=== PATIENT | male | born 1955 | race Caucasian/White ===

== ENCOUNTER → 2016-08-09 | Outpatient (CLI) | payer OTHER ==
--- NOTE | 2016-08-29 09:10 | HKNOTE ---
DATE OF SERVICE: 08/09/2016 REFERRING PHYSICIAN: [place], [id number] [facility], [place] [address] MAIN COMPLAINT: Pain in both hips, worse on the right side. HISTORY OF PRESENT ILLNESS: This is a 60-year-old male who underwent lumbar spine surgery in [address] Jorge Plasencia at [facility]. His surgery was unsuccessful and the patient was not improved at all from the operation. The pain became progressively worse over the last 3 years and lately has become unbearable. He saw Dr. Ward in [place], who obtained x- rays of his pelvis and diagnosed osteonecrosis of both hips. He then referred the patient to me for further evaluation and treatment. CHIEF COMPLAINT: 1. Pain in the right groin, radiating down the anterior aspect of the right thigh to just above the knee. 2. Pain in the left groin, radiating down the anterior aspect of the leg to just above the knee. The pain is described as being severe. The patient uses a rolling walker at all times. He is hardly able to get around. The pain keeps him awake at night. He is barely able to get to the bathroom. His pain is aggravated by walking and stair climbing (which he is not able to do at all). The pain is not aggravated by coughing, sneezing or straining with stool. He does get wrist pain. He is taking Neurontin, Dunmor and temazepam. There are not adequate. He does get numbness and tingling in both legs. He is not able to walk with a rolling walker more than 50 feet, he gets pain with every step that he takes in both hips. As noted above, the right hip is worse than the left. He limps all the time. He does not have a shoe lift and the legs lengths were equal. He cannot clip his toenails or put on his socks or tie his shoelaces. PREVIOUS ORTHOPEDIC OPERATIONS: 1. Surgery to the cervical spine 3 years ago. 2. Surgery to the lumbar spine 3 years ago. 3. Arthroscopic surgery on both knees for "cartilage repair." PRIOR CORTISONE INTAKE: None. SOCIAL HISTORY: Alcohol intake: None. Work status: The patient is totally disabled at this time since 2013. 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 OTHER JOINT PROBLEMS: Arthroscopic surgery on both knees for "cartilage repair." The patient continues to have pain in both knees. Blood tests for arthritis: None. Prior injuries to hips or knees: None. PAST MEDICAL HISTORY: 1. Hypertension. 2. Type 2 diabetes since 2014. PAST SURGICAL HISTORY: 1. Tonsillectomy. 2. Three knee surgeries (arthroscopic). 3. Cervical spine fusion. 4. Lumbar spine fusion. DRUG ALLERGIES: None. MEDICATIONS: 1. Losartan 100 mg q. a.m. for hypercholesterolemia. 2. Duloxetine 60 mg daily. 3. Atorvastatin 20 mg daily. 4. Amlodipine 10 mg daily. 5. Neurontin 800 mg 3 times a day. 6. Humalog insulin 10 units a.m. and at bedtime daily. 7. Dunmor 10/325 three times a day. PREVIOUS MAJOR INJURIES: 1. Biceps tears both elbows. 2. Torn left calf tendon. 3. Torn Achilles tendon on the right side. FAMILY HISTORY: Father, age 91, alive and well. Mother at 73 of tuberculosis. REVIEW OF SYSTEMS: Hypertension, diabetes, otherwise entirely negative. Gets tingling in both legs. HABITS: No alcohol, no cigarettes. Diet: Sugar-free. PHYSICAL EXAMINATION: GENERAL: The patient comes in with his . He has a rolling walker. He is barely able to get onto the examination couch. HIP: Examination of the right hip: Flexion 50 degrees. External rotation, contracture, 20 degrees. Internal rotation, - 20 degrees. External rotation, 20 degrees. Abduction 25 degrees. Adduction 0 degrees. Severe pain in the right groin at all levels of motion. Examination of the left hip: Flexion is 80 degrees. External rotation, 20 degrees. Internal rotation, -20 degrees, abduction 40 degrees, adduction 20 degrees. External rotation, contracture 20 degrees. The patient has severe pain in both groins at the limits of motion. No tenderness anywhere around either hip. KNEES: Examination of the right knee: A full range of motion. No swelling. No crepitus. Patella tracks normally. Portal scars of previous arthroscopic surgery. Examination of the left knee: A full range of motion. No swelling. No crepitus. Patella tracks normally. Portal scars of previous arthroscopic surgery. IMAGING: Plain x-rays of the hips brought with him were reviewed (obtained on 06/23/16). RIGHT HIP: Shows the classic signs of avascular necrosis with a collapsing superior segment with an opaque superior segment in a classic triangular formation of osteonecrosis. Some secondary changes of arthritis. Moderate collapse of the femoral head. LEFT HIP: Shows the classic signs of avascular necrosis with a collapsing superior segment with an opaque superior segment in a classic triangular formation of osteonecrosis. Some secondary changes of arthritis. Moderate collapse of the femoral head. MRI obtained on 07/28/[address] Romero Hawk as showing "Avascular necrosis of bilateral femoral heads associated with mild right and minimal left subchondral collapse and mild bilateral secondary degenerative changes of the femoral acetabular joints. End-stage disease. Mild chronic osteitis pubis. DIAGNOSES: 1. Osteonecrosis of both hips, more symptomatic on the right side. 2. Diabetes. 3. Hypertension. 4. Status post cervical spine fusion. 5. Status post lumbar spine fusion. 6. Status post arthroscopic surgeries, both knees. MANAGEMENT: The patient was advised that he is way overdue for hip replacement operations on both hips. He is markedly disabled. His has to nurse him every minute of every day. He can barely walk to the bathroom. The patient is advised that he will need to have 2 hip replacements, starting with the right hip and subsequently at a different date the left hip. The surgery of hip replacement was discussed with him and his in a fair amount of detail, including some of the major possible complications. The patient was given a copy of my booklet titled "Hip Replacement Surgery." He is advised to read this through. If he has any questions after he has read through the booklet, he can ask me those same questions on a personal level at our next visit. The patient is anxious to have his surgery as soon as possible. Authorization is being requested to proceed with a right hip replacement at this time. Dictated By: Abhijit Navarro MD /edgard/evan /Document#: [id number]
== END | disposition home or self-care (01) ==
LOC: HKI 14:34
DX: M87.850 Other osteonecrosis, pelvis (principal); I10 Essential (primary) hypertension; E11.9 Type 2 diabetes mellitus without complications; Z98.1 Arthrodesis status; Z79.4 Long term (current) use of insulin
CPT/HCPCS: 20610; Z7500; Z7610; G0463

== ENCOUNTER → 2016-09-13 | Outpatient (CLI) | payer OTHER ==
[~2016-09-13] MED LIST: AMLO-218 PO; ATOR20TA65 PO; DULO60CA59 PO; GABA800T PO; HYDR-902 PO; LOSA100T7 PO; NOV70303I SC; RES15 PO
--- NOTE | 2016-09-14 07:34 | HKNOTE ---
DATE OF SERVICE: 09/13/2016 He is scheduled to have a right total hip replacement on 09/14/2016. He had surgery by Dr. Sierra Moore. He will be followed along postoperatively by his hospitalist. He did not give any blood for autotransfusion. He understands the risks associated with using hospital blood. He is agreeable to using hospital blood if needed. Numerous questions were asked and answered. The patient also has avascular necrosis of the left hip which causes him a great deal of pain but "not as severe as the right hip." After discussion with him, noting that cortisone itself could cause avascular necrosis, it was unlikely to aggravate the avascular necrosis he already has in the left hip, he is agreeable to me putting an injection of 40 mg of Kenalog into the left hip to help him with his recovery. He comes in with his . Dictated By: Abhijit Navarro MD /edgard/lakeshia /Document#: [id number]
== END | disposition home or self-care (01) ==
LOC: HKI 13:13
DX: M87.850 Other osteonecrosis, pelvis (principal)

== ENCOUNTER 2016-09-14 05:21 | Inpatient (IN) | payer MEDICARE, OTHER ==
[2016-09-13 16:05] VITALS: BMI 37.0
[~2016-09-14] VITALS: Ht 182.9 cm; Wt 123.2 kg
[2016-09-14] VITALS (29 sets, daily range): BP systolic 74–140; BP diastolic 40–86; PULSE 65–102; RESP 12–47; Ht 182.9 cm; Wt 123.2 kg
[2016-09-14] MEDS ORDERED: ONDANSETRON 4 MG INJ IV ONE (06:00)
[2016-09-14] MEDS ORDERED: LACTATED RINGER'S 1,000 ML IV* SCH (06:00)
[2016-09-14] MEDS ORDERED: DEXAMETHASONE 4 MG/ML 1 ML INJ IV ONE (06:00)
[2016-09-14] MEDS ORDERED: VANCOMYCIN 1 GM (PMX) 250 ML IVPB ONE (06:00)
[2016-09-14] MEDS ORDERED: CELECOXIB 200 MG CAP PO ONE (06:00)
[2016-09-14] MEDS ORDERED: LANSOPRAZOLE 30 MG CAP PO ONE (06:00)
[2016-09-14] MEDS ORDERED: ACETAMINOPHEN 1000MG/100ML IV 100 ML IVPB ONE (06:00)
[2016-09-14] MEDS ORDERED: oxyCODONE (CR) 10 MG TAB [oxyCONTIN] PO ONE (06:00)
[2016-09-14] MEDS ORDERED: NEOSTIGMINE 3 MG/3 ML SYRINGE ONE (06:18)
[2016-09-14] MEDS ORDERED: DEXAMETHASONE 4 MG/ML 1 ML INJ ONE (06:18)
[2016-09-14] MEDS ORDERED: ROCURONIUM 50 MG INJ ONE (06:18)
[2016-09-14] MEDS ORDERED: MIDAZOLAM 1 MG/ML 2 ML INJ ONE (06:18)
[2016-09-14] MEDS ORDERED: PROPOFOL 20 ML ONE (06:18)
[2016-09-14] MEDS ORDERED: GLYCOPYRROLATE 0.4 MG INJ ONE (06:18)
[2016-09-14] MEDS ORDERED: LIDOCAINE 2% (SDV) 5 ML INJ ONE (06:18)
[2016-09-14] MEDS ORDERED: ONDANSETRON 4 MG INJ ONE (06:18)
[2016-09-14] MEDS ORDERED: FENTAnyl 50 MCG/ML VIAL ONE (06:18)
[2016-09-14] MEDS ORDERED: LIDOCAINE 2%/EPI 30 ML INJ ONE (06:19)
[2016-09-14] MEDS ORDERED: SUGAMMADEX SODIUM 200 MG/2 ML VIAL IV ONE (06:19)
[2016-09-14] MEDS ORDERED: TRANEXAMIC ACID 2,000 MG in SOD CHLORIDE 0.9% 100 ML IVPB ONE (06:30)
[2016-09-14] MEDS ORDERED: LABETALOL HCL 20MG INJ IV PRN (06:30)
[2016-09-14] MEDS ORDERED: hydrALAzine 20 MG INJ IV PRN (06:30)
[2016-09-14] MEDS ORDERED: EPHEDrine SULFATE 50 MG/5 ML SYG IV PRN (06:30)
[2016-09-14] MEDS ORDERED: DIPHENHYDRAMINE 50 MG INJ IV PRN (06:30)
[2016-09-14] MEDS ORDERED: OXYCODONE/ACETAMINOPHEN (5/325) TAB PO PRN ×2 (06:30)
[2016-09-14] MEDS ORDERED: MEPERIDINE 25 MG INJ IV PRN (06:30)
[2016-09-14] MEDS ORDERED: MIDAZOLAM 1 MG/ML 2 ML INJ IV PRN (06:30)
[2016-09-14] MEDS ORDERED: ATROPINE 1 MG/10 ML SYRINGE IV PRN (06:30)
[2016-09-14] MEDS ORDERED: HYDROmorphONE (0.2 MG/ML) 10ML SYG IV PRN ×3 (06:30)
[2016-09-14] MEDS ORDERED: FENTAnyl 50 MCG/ML VIAL IV PRN ×2 (06:30)
[2016-09-14] MEDS ORDERED: morphine (1 MG/ML) 10ML SYRINGE IV PRN ×3 (06:30)
[2016-09-14] MEDS ORDERED: ONDANSETRON 4 MG INJ IV PRN ×2 (06:30→17:00)
[2016-09-14] MEDS ORDERED: DULO60CA59 PO (06:36)
[2016-09-14] MEDS ORDERED: RES15 PO (06:36)
[2016-09-14] MEDS ORDERED: LOSA100T7 PO (06:36)
[2016-09-14] MEDS ORDERED: AMLO-218 PO (06:36)
[2016-09-14] MEDS ORDERED: HYDR-902 PO (06:36)
[2016-09-14] MEDS ORDERED: NOV70303I SC (06:36)
[2016-09-14] MEDS ORDERED: ATOR20TA65 PO (06:36)
[2016-09-14] MEDS ORDERED: GABA800T PO (06:36)
--- NOTE | 2016-09-14 06:48 | HPN ---
Date/Time of Note Date/Time of Note DATE: 09/14/16 TIME: 06:48 Interval H&P Admission Note Pt. seen H&P reviewed: No system changes ROSALIND SKINNER PA-C Sep 14, 2016 06:48
[2016-09-14] MEDS ORDERED: ROPIVACAINE 0.2% 100 ML ONE (07:04)
[2016-09-14] MEDS ORDERED: HEPARIN 1000 UNITS/ML 10 ML INJ ONE (07:04)
[2016-09-14] MEDS ORDERED: POLYMYXIN B 500000 UNIT INJ ONE (07:04)
[2016-09-14] MEDS ORDERED: GELATIN SIZE 100 SPONGE ONE (07:04)
[2016-09-14] MEDS ORDERED: VANCOMYCIN 1 GM INJ ONE (07:04)
[2016-09-14] MEDS ORDERED: BACITRACIN 50000 UNITS INJ ONE (07:08)
[2016-09-14] MEDS ORDERED: TRIAMCINOLONE ACET 40 MG/ML INJ ONE (07:28)
[2016-09-14] MEDS ORDERED: SOD CHLORIDE 0.9% 50 ML, TRANEXAMIC ACID 2,000 MG IRR SCH ×2 (07:30)
[2016-09-14] MEDS ORDERED: LABETALOL HCL 20MG INJ ONE (08:33)
[2016-09-14] MEDS ORDERED: hydrALAzine 20 MG INJ ONE (08:33)
[2016-09-14] MEDS ORDERED: ROPIVACAINE 0.2% 100ML BAG INJ ONE (08:52)
[2016-09-14] MEDS ORDERED: EPHEDrine SULFATE 50 MG/5 ML SYG ONE (10:16)
[2016-09-14] MEDS: DEXTROSE 5%-LR 1,000 ML IV SCH ×2 (11:44→21:16)
--- NOTE | 2016-09-14 11:53 | OPR ---
Date/Time of Note Date/Time of Note DATE: 09/14/16 TIME: 11:52 Operative Report Preoperative Diagnosis Severe degenerative right hip osteoarthritis Postoperative Diagnosis Severe degenerative right hip osteoarthritis Operation/Procedure Performed Right total hip arthroplasty via anterior route Surgeon: MICHAEL RAE MD special education assistant: ROSALIND SKINNER PA-C Anesthesia: general, epidural Estimated Blood Loss: other (500ml) Transfusion Required: yes Complications: None ROSALIND SKINNER PA-C Sep 14, 2016 11:53
--- NOTE | 2016-09-14 11:55 | PDOCDIS ---
Discharge Instructions DIAGNOSIS Discharge Diagnosis Status post right total hip arthroplasty via anterior route CONDITION Patient Condition: Stable HOME CARE INSTRUCTIONS: Diet Instructions: Regular ACTIVITY: Activity Restrictions: Slowly Increase Activity Rest between Activity Avoid heavy lifting No Sexual Activity Do not Drive Do not operate Machinery Do not operate Power Tool Avoid Heavy Housework Keep Limb Elevated (Use ice modalities while elevated) Weight Bearing (As tolerated with front wheeled walker) Bathing Restrictions: Shower (Using Tegaderm with pad. Apply prior to shower. Dab dry and remove after shower. Repeat the steps each day until ck are removed 10 days postoperatively.) FOLLOW UP/APPOINTMENTS Follow-up Plan 10/05/2016 at 2:15 PM ROSALIND SKINNER PA-C Sep 14, 2016 11:54
[2016-09-14] MEDS ORDERED: NALOXONE (0.4 MG/ML) INJ IV PRN (12:00)
[2016-09-14] MEDS ORDERED: BETHANECHOL 25 MG TAB PO PRN (12:00)
[2016-09-14] MEDS ORDERED: ZOLPIDEM 5 MG TAB PO PRN (12:00)
[2016-09-14] MEDS ORDERED: DOCUSATE SODIUM 100 MG CAP PO ONE (12:00)
[2016-09-14] MEDS ORDERED: NACL 0.9% 3 ML SYG IV SCH ×2 (12:00→17:00)
[2016-09-14] MEDS ORDERED: oxyCODONE 5 MG TAB PO PRN ×3 (12:00)
[2016-09-14] MEDS ORDERED: SENNA/DOCUSATE NA (8.6MG/50MG) TAB PO PRN (12:00)
[2016-09-14] MEDS ORDERED: HYDROmorphONE 0.2 MG/ML PCA IV PRN (12:00)
[2016-09-14] MEDS ORDERED: MEPERIDINE 10 MG/ML 30 ML PCA IV PRN (12:00)
[2016-09-14] MEDS ORDERED: MAGNESIUM HYDROXIDE 30ML CUP PO PRN ×2 (12:00→17:00)
[2016-09-14] MEDS ORDERED: NA PHOSPHATE/BIPHOS 133 ML ENEMA PR PRN (12:00)
[2016-09-14] MEDS ORDERED: DIPHENHYDRAMINE 50 MG INJ IM PRN (12:00)
[2016-09-14] MEDS ORDERED: BISACODYL 10 MG SUPP PR PRN ×2 (12:00→17:00)
[2016-09-14] MEDS ORDERED: ASPIRIN (EC) 325 MG TAB PO ONE (12:00)
[2016-09-14] MEDS: ACETAMINOPHEN 1000MG/100ML IV 100 ML IVPB SCH ×2 (12:35→19:49)
[2016-09-14] MEDS: CEFAZOLIN 1 GM/50 ML (PMX) 50 ML IVPB SCH ×2 (12:35→20:11)
[2016-09-14] MEDS: ONDANSETRON 4 MG INJ IV SCH ×3 (12:52→23:22)
--- NOTE | 2016-09-14 13:43 | RADRPT ---
PROCEDURE: Hip radiograph CLINICAL INDICATION: Intraoperative examination. TECHNIQUE: Single supine AP portable view. COMPARISON: Radiograph from 09/14/2016 FINDINGS: Alignment of the right total hip arthroplasty is anatomic. No suspicious todd-hardware lucency. No hardware fracture. A drain overlies the operative bed. Superficial skin ck appear IMPRESSION: Expected surgery related changes Physician Jesika Date Time Electronically viewed and signed by Lorraine Chung Physician on 09/14/2016 13:42 LG/
[2016-09-14] MEDS ORDERED: TRANEXAMIC ACID 1,230 MG in SOD CHLORIDE 0.9% 100 ML IVPB ONE ×2 (15:00→18:00)
--- NOTE | 2016-09-14 15:01 | RADRPT ---
PROCEDURE: Fluoroscopic guidance with x-ray images during right hip bipolar hemiarthroplasty. CLINICAL INDICATION: Right hip bipolar hemiarthroplasty. TECHNIQUE: 3 x-ray images were obtained during right hip bipolar hemiarthroplasty. COMPARISON: None available FINDINGS: 1.0 minutes of fluoroscopy time was utilized during pacemaker insertion. 3 x-ray images were obtain ed during the procedure in progress for guidance. Cumulative dose total is 20.0 mGy and 0.593 mGym2. The right hip bipolar hemiarthroplasty is in good position and alignment. Procedure was performed by Dr. Navarro. IMPRESSION: 1. Fluoroscopic guidance with x-ray images obtained for right hip bipolar hemiarthroplasty. RPTAT: XX .Cassius Marroquin MD, MD Date Time Electronically viewed and signed by .Cassius Marroquin MD, on 09/14/2016 15:01 .T/
[2016-09-14] MEDS ORDERED: HIP PAIN COCKTAIL VANCO INJ SCH ×7 (15:30)
[2016-09-14] MEDS ORDERED: morphine 4 MG/ML VIAL IV PRN (17:00)
[2016-09-14] MEDS ORDERED: DOCUSATE SODIUM 100 MG CAP PO PRN (17:00)
[2016-09-14] MEDS ORDERED: HYDROCODONE/APAP (5/325) TAB PO PRN ×2 (17:00)
[2016-09-14] MEDS ORDERED: ACETAMINOPHEN 325 MG TAB PO PRN (17:00)
[2016-09-14] MEDS ORDERED: ACETAMINOPHEN 650 MG SUPP PR PRN (17:00)
--- NOTE | 2016-09-14 17:05 | CONS ---
Date/Time of Note Date/Time of Note DATE: 09/14/16 TIME: 16:51 Assessment/Plan Assessment/Plan Chief Complaint/Hosp Course Impression and plan 1. Severe degenerative right hip osteoarthritis status post right total hip arthroplasty. Continue with wound care physical therapy and analgesics. Appears stable at present. 2. History of diabetes. Will start insulin regimen. Follow-up on A1c. 3. History of hypertension. Blood pressure remained stable at present. Will hold off antihypertensives for now. Will provide as needed 4. History of dyslipidemia. Follow-up on fasting lipid panel 5. History of back pain. Continue physical therapy and analgesics. Consultation process 40 minutes Discussed plan of care with Dr. Todd Problems: Consultation Date/Type/Reason Admit Date/Time Sep 14, 2016 at 05:21 Reason for Consultation medical management Hx of Present Illness This is a 60-year-old male with history of dyslipidemia, diabetes, hypertension , osteoarthritis, previous back surgery including cervical and thoracic and 2013 for chronic back pain, dyslipidemia, bilateral knee surgery, came to [facility] for elective surgery of right hip. Patient is report having osteoarthritis and pain of right hip for roughly 5 years. He did come to the hospital for elective surgery and did receive right total hip arthroplasty. Appears comfortable at present. Vital signs remained stable. Labs are pending. We will evaluate him for the aformentiond issues. 12 point review of systems obtained and entirely negative except as mentioned in history of present illness Past Medical History Medical/surgical history dyslipidemia, diabetes, hypertension, osteoarthritis, previous back surgery including cervical and thoracic and 2013 for chronic back pain, dyslipidemia, bilateral knee surgery Family History Significant Family History: no pertinent family hx Social History Alcohol Use: none Smoking Status: Never smoker Drug Use: none Exam/Review of Systems Vital Signs Vitals Vital Signs Date Time Temp Pulse Resp B/P Pulse Ox O2 Delivery O2 Flow Rate FiO2 09/14/16 13:23 96 18 102/64 96 Room Air 09/14/16 11:46 98.5 Exam Constitutional: alert, obese, oriented Head: normocephalic Neck: supple, No jvd Respiratory: normal air movement Cardiovascular: regular rate and rhythm Gastrointestinal: non-tender, soft Musculoskeletal: swelling Neurological: 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 (Status post right hip surgery with drain in place and dressing in place clean dry and intact), nl mental status, nl speech Results Results 24 hrs Laboratory Tests Test 09/14/16 06:19 09/14/16 11:47 09/14/16 14:39 Bedside Glucose 110 168 175 Medications Medications Current Medications Ropivacaine 60 ml/ Morphine Sulfate 4 mg/Clonidine 100 mcg/ Epinephrine 0.3 mg/ Ketorolac Tromethamine 30 mg/Vancomycin HCl 500 mg/Sodium Chloride 50 ml INTRA- OP INJ ; Start 09/14/16 at 15:30 Dextrose/Lactated Ringer's (D5-Lr) 1,000 ml @ 80 mls/hr [id number] IV ; Start 09/14 at 11:44 Hydromorphone HCl (Dilaudid SUPERVISOR STITCHING DEPARTMENT) Q4PCA PRN IV SEVERE PAIN 8-10; Start 09/14/16 at 12:00; Stop 09/15/16 at 09:00 Meperidine HCl (Demerol SUPERVISOR STITCHING DEPARTMENT) Q4PCA PRN IV SEVERE PAIN 8-10; Start 09/14/16 at 12:00; Stop 09/15/16 at 09:00; Status Future Hold Oxycodone HCl (Roxicodone) 20 mg Q3H PRN PO PAIN LEVEL 8-10; Start 09/14/16 at 12:00 Oxycodone HCl (Roxicodone) 10 mg Q3H PRN PO PAIN LEVEL 4-7; Start 09/14/16 at 12 :00 Oxycodone HCl 5 mg 5 mg Q3H PRN PO PAIN LEVEL 1-3; Start 09/14/16 at 12:00 Acetaminophen (Ofirmev 1000mg/ 100ml Iv) 100 ml @ 400 mls/hr Q8H IVPB Last administered on 09/14/16 12:35; Admin Dose 400 MLS/HR; Start 09/14/16 at 12:00; Stop 09/16/16 at 04:14 Zolpidem Tartrate (Ambien) 5 mg HS PRN PO INSOMNIA; Start 09/14/16 at 12:00 Ondansetron HCl 4 mg 4 mg Q6H IV Last administered on 09/14/16 12:52; Admin Dose 4 MG; Start 09/14/16 at 12:00; Stop 09/15/16 at 06:01 Cefazolin Sodium (Ancef 1 Gm/50 ml (Pmx)) 50 ml @ 100 mls/hr Q8H IVPB Last administered on 8/2/17at 12:35; Admin Dose 100 MLS/HR; Start 09/14/16 at 12:00; Stop 09/15/16 at 04:29 Aspirin (Ecotrin) 325 mg BID PO ; Start 09/15/16 at 09:00 Celecoxib (Celebrex) 200 mg BID PO ; Start 09/15/16 at 09:00 Dexamethasone (Decadron) 4 mg DAILY@07 IV ; Start 09/15/16 at 07:00; Stop at 06:59 Pantoprazole (Protonix Tab) 40 mg DAILY@06 PO ; Start 09/15/16 at 06:00 Docusate Sodium/ Ferrous Fumarate (Inga-Sequels) 1 tab BID PO ; Start 09/15/16 at 09:00 Docusate Sodium (Colace) 200 mg BID PO ; Start 09/15/16 at 09:00; Stop 09/17/16 at 21:01 Simethicone (Mylicon) 80 mg TID PRN PO DISTENSION/GAS/BLOATING; Start 09/14/16 at 12:00 Senna/Docusate Sodium (Senokot-S) 2 tab BID PRN PO CONSTIPATION; Start 09/14/16 at 12:00 Magnesium Hydroxide (Milk Of Mag) 30 ml HS PRN PO CONSTIPATION; Start 09/14/16 at 12:00 Bisacodyl (Dulcolax Supp) 10 mg DAILY PRN WI CONSTIPATION; Start 09/14/16 at 12: 00 Sodium Biphosphate/ Sodium Phosphate (Fleet Enema) 133 ml DAILY PRN WI CONSTIPATION; Start 09/14/16 at 12:00 Diphenhydramine HCl (Benadryl) 25 mg Q4H PRN IM ITCHING OR RASH; Start 09/14/16 at 12:00 Ketorolac Tromethamine (Toradol) 15 mg DAILY@06 PRN INJ ADMINSTER BY SURGEON ONLY; Start 09/15/16 at 06:00; Stop 09/19/16 at 05:59 Bupivacaine HCl/ Epinephrine Bitart (Marcaine 0.25%/ Epi (Sdv) 30 ml) 20 ml DAILY@06 PRN INJ ADMINSTER BY SURGEON ONLY; Start 09/15/16 at 06:00; Stop at 05:59 Naloxone HCl (Narcan) 0.2 mg Q2M PRN IV DECREASED REPIRATORY RATE; Start at 12:00 SHIRIN CANDELARIA Sep 14, 2016 17:01
[2016-09-14] MEDS: INSULIN ASPART [NOVOLOG] 3 ML PEN SC SCH ×3 (19:00→20:32)
[2016-09-15 00:32] VITALS: BP 119/58; RESP 20
[2016-09-15] MEDS: ACCU-CHEK XX SCH ×2 (02:00)
[2016-09-15] MEDS: ACETAMINOPHEN 1000MG/100ML IV 100 ML IVPB SCH ×3 (03:32→20:18)
[2016-09-15] MEDS: CEFAZOLIN 1 GM/50 ML (PMX) 50 ML IVPB SCH (04:04)
[2016-09-15 05:38] LABS: BASOPHILS % 0.1 % (0.0-2.0); HEMATOCRIT 33.2 % (42.0-52.0); HEMOGLOBIN 11.5 g/dl (14.0-18.0); LYMPHOCYTES # 0.8 10^3/ul (0.8-2.9); LYMPHOCYTES % 5.6 % (15.0-51.0); MEAN CORPUSCULAR HEMOGLOBIN 29.6 pg (29.0-33.0); MEAN CORPUSCULAR HGB CONC 34.6 g/dl (32.0-37.0); MEAN CORPUSCULAR VOLUME 85.3 fl (82.0-101.0); MEAN PLATELET VOLUME 9.9 fl (7.4-10.4); MONOCYTE # 1.2 10^3/ul (0.3-0.9); MONOCYTES % 8.1 % (0.0-11.0); NEUTROPHIL # 12.1 10^3/ul (1.6-7.5); NEUTROPHILS % 85.1 % (39.0-77.0); PLATELET COUNT 159 10^3/UL (140-415); RED BLOOD COUNT 3.89 10^6/ul (4.70-6.10); WHITE BLOOD COUNT 14.2 10^3/ul (4.8-10.8)
[2016-09-15] MEDS: PANTOPRAZOLE (EC) 40 MG TAB PO SCH (05:46)
[2016-09-15] MEDS: ONDANSETRON 4 MG INJ IV SCH (05:46)
[2016-09-15] MEDS: DEXAMETHASONE 4 MG/ML 1 ML INJ IV SCH (05:54)
[2016-09-15] MEDS ORDERED: BUPIVACAINE 0.25%/EPI (SDV) 30 ML INJ INJ PRN (06:00)
[2016-09-15] MEDS ORDERED: KETOROLAC 15 MG INJ INJ PRN (06:00)
[2016-09-15 06:49] LABS: ALBUMIN 3.2 g/dl (3.3-4.9); ALBUMIN/GLOBULIN RATIO 1.45; BILIRUBIN,INDIRECT 0.1 mg/dl (0-1.1); BILIRUBIN,TOTAL 0.1 mg/dl (0.2-1.3); CALCIUM 8.8 mg/dl (8.4-10.2); CHOL/HDL RATIO 4.6 RATIO; CREATININE 1.01 mg/dl (0.61-1.24); MAGNESIUM 1.6 mg/dl (1.7-2.5); POTASSIUM 4.4 mmol/L (3.5-5.1); TOTAL PROTEIN 5.4 g/dl (6.1-8.1)
[2016-09-15 06:56] LABS: THYROID STIMULATING HORMONE 0.527 MIU/L (0.465-4.680)
--- NOTE | 2016-09-15 07:46 | PN ---
Date/Time of Note Date/Time of Note DATE: 09/15/16 TIME: 07:43 Assessment/Plan VTE Prophylaxis VTE Prophylaxis Intervention: ambulation, SCD's, other (Aspirin 325 mg twice daily) Lines/Catheters IV Catheter Type (from Nrsg): Peripheral IV Assessment/Plan Assessment/Plan -Hemovac Removed Today. 400 cc output -Pain Cocktail Given -Pain Meds as needed -Dress change performed today -OOB with PT -ASA/SCDs for DVT Prophylaxis -Continue monitoring with Internal Medicine -Patient Stable Subjective 24 Hr Interval Summary 60-year-old male postop day 1 status post right total hip arthroplasty via anterior route. Patient experienced severe pain exacerbation around 2 in the morning. Was provided with pain medication and pain has been controlled since. Patient resting comfortably in bed today. Patient was able to perform physical therapy yesterday where he was weightbearing and walking throughout the hallway. Denies any chest pain/tightness. Denies any calf pain. Patient confirms that he has been receiving his Humalog insulin status post surgery. Constitutional: no complaints Pain Control: well controlled Exam/Review of Systems Vital Signs Vitals Vital Signs Date Time Temp Pulse Resp B/P Pulse Ox O2 Delivery O2 Flow Rate FiO2 09/15/16 05:52 17 09/15/16 00:32 98.5 83 119/58 100 09/14/16 16:30 Room Air Intake and Output 09/14/16 09/14/16 09/15/16 15:00 23:00 07:00 Intake Total 3320 ml 1124.6 ml 1590 ml Output Total 430 ml 1940 ml Balance 2890 ml 1124.6 ml -350 ml Exam Free Text/Dictation -Hemovac: Intact. 400 cc output -Pain Cocktail Drains: Intact -Incision: Clean, Dry and Intact without any redness or drainage -Thigh soft -5/5 Quadriceps, Tibialis Anterior, EHL Gastrocnemius/Soleus and Peroneals -Normal Sensation -Palpable DP/PT, Capillary Refill <2 secs -No Distal Edema -Negative Jeremy Sign/No calf pain -Toes Freely Movable Constitutional: alert, oriented, well developed Results Result Diagram: 09/15/16 0432 09/15/16 0432 ROSALIND SKINNER PA-C Sep 15, 2016 07:46
[2016-09-15 08:25] VITALS: BP 136/70; RESP 18
[2016-09-15] MEDS: INSULIN ASPART [NOVOLOG] 3 ML PEN SC SCH ×7 (09:19→20:26)
[2016-09-15] MEDS: INSULIN GLARGINE [LANtus] 3 ML PEN SC SCH (09:21)
[2016-09-15] MEDS: FERROUS FUMARATE (SR) TAB PO SCH ×2 (09:21→20:27)
[2016-09-15] MEDS: DOCUSATE SODIUM 100 MG CAP PO SCH ×2 (09:21→20:26)
[2016-09-15] MEDS: CELECOXIB 200 MG CAP PO SCH ×2 (09:21→20:27)
[2016-09-15] MEDS: ASPIRIN (EC) 325 MG TAB PO SCH ×2 (09:21→20:27)
[2016-09-15] MEDS ORDERED: ZOLPIDEM 5 MG TAB PO PRN (12:00)
[2016-09-15] MEDS ORDERED: MAGNESIUM SULFATE 2 GM/50 ML 50 ML IVPB ONE (12:30)
[2016-09-15] MEDS: DEXTROSE 5%-LR 1,000 ML IV SCH (12:44)
[2016-09-15] MEDS: GABAPENTIN 400 MG CAP PO SCH ×2 (13:18→20:26)
[2016-09-15 15:06] VITALS: BP 138/67; RESP 20
--- NOTE | 2016-09-15 16:15 | PN ---
Date/Time of Note Date/Time of Note DATE: 09/15/16 TIME: 16:12 Assessment/Plan VTE Prophylaxis VTE Prophylaxis Intervention: other (Per surgeon recommendation) Lines/Catheters IV Catheter Type (from Nrsg): Peripheral IV Assessment/Plan Chief Complaint/Hosp Course Impression and plan 1. Severe degenerative right hip osteoarthritis status post right total hip arthroplasty. Continue with wound care physical therapy and analgesics. Appears stable at present. 2. History of diabetes. continue insulin regimen. 3. History of hypertension. Blood pressure remained stable at present. Will hold off antihypertensives for now. Will provide as needed 4. History of dyslipidemia. Patient resumed on statin medication 5. History of back pain. Continue physical therapy and analgesics. 6. Hypomagnesemia. Will replete and check level in a.m. Disposition plan: Statin medication added. Good control with blood glucose. Continue on insulin regimen. DC planning Discussed plan of care with Dr. Todd Problems: Subjective 24 Hr Interval Summary Free Text/Dictation Comfortable at present. Reports doing well with ambulation physical therapy Exam/Review of Systems Vital Signs Vitals Vital Signs Date Time Temp Pulse Resp B/P Pulse Ox O2 Delivery O2 Flow Rate FiO2 09/15/16 15:06 97.4 82 20 138/67 94 09/14/16 16:30 Room Air Intake and Output 09/14/16 09/14/16 09/15/16 15:00 23:00 07:00 Intake Total 3320 ml 1124.6 ml 1590 ml Output Total 430 ml 1940 ml Balance 2890 ml 1124.6 ml -350 ml Exam Constitutional: alert, obese, oriented Head: normocephalic Neck: supple, No jvd Respiratory: normal air movement Cardiovascular: regular rate and rhythm Gastrointestinal: non-tender, soft Musculoskeletal: swelling. Status post right hip surgery with drain removed. 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 nl mental status, nl speech Results Result Diagram: 09/15/16 0432 09/15/16 0432 Results 24 hrs Laboratory Tests Test 09/14/16 17:21 09/14/16 17:23 09/14/16 18:57 09/14/16 20:28 Bedside Glucose 313 H 268 H 281 H 278 H Test 09/15/16 01:56 09/15/16 04:32 09/15/16 08:43 09/15/16 12:42 Bedside Glucose 232 H 150 206 White Blood Count 14.2 H Red Blood Count 3.89 L Hemoglobin 11.5 L Hematocrit 33.2 L Mean Corpuscular Volume 85.3 Mean Corpuscular Hemoglobin 29.6 Mean Corpuscular Hemoglobin Concent 34.6 Red Cell Distribution Width 13.0 Platelet Count 159 Mean Platelet Volume 9.9 Neutrophils % 85.1 H Lymphocytes % 5.6 L Monocytes % 8.1 Eosinophils % 0.0 Basophils % 0.1 Nucleated Red Blood Cells % 0.0 Neutrophils # 12.1 H Lymphocytes # 0.8 Monocytes # 1.2 H Eosinophils # 0.0 Basophils # 0.0 Nucleated Red Blood Cells # 0.0 Sodium Level 140 Potassium Level 4.4 Chloride Level 103 Carbon Dioxide Level 24 Anion Gap 17 H Blood Urea Nitrogen 18 Creatinine 1.01 Glucose Level 197 Hemoglobin A1c 5.7 Calcium Level 8.8 Phosphorus Level 3.0 Magnesium Level 1.6 L Total Bilirubin 0.1 L Direct Bilirubin 0.00 Indirect Bilirubin 0.1 Aspartate Amino Transf (AST/SGOT) 33 Alanine Aminotransferase (ALT/SGPT) 32 Alkaline Phosphatase 66 Total Protein 5.4 L Albumin 3.2 L Globulin 2.20 Albumin/Globulin Ratio 1.45 Triglycerides Level 221 H Cholesterol Level 143 LDL Cholesterol, Calculated 68 HDL Cholesterol 31 Cholesterol/HDL Ratio 4.6 Thyroid Stimulating Hormone (TSH) 0.527 Free Thyroxine Index 2.37 Thyroxine (T4) 6.4 Triiodothyronine (T3) Uptake 37.0 Medications Medications Current Medications Ropivacaine 60 ml/ Morphine Sulfate 4 mg/Clonidine 100 mcg/ Epinephrine 0.3 mg/ Ketorolac Tromethamine 30 mg/Vancomycin HCl 500 mg/Sodium Chloride 50 ml INTRA- OP INJ ; Start 09/14/16 at 15:30 Dextrose/Lactated Ringer's (D5-Lr) 1,000 ml @ 80 mls/hr [id number] IV Last administered on 09/14/16t 21:16; Admin Dose 80 MLS/HR; Start 09/14/16 at 11:44 Oxycodone HCl (Roxicodone) 20 mg Q3H PRN PO PAIN LEVEL 8-10; Start 09/14/16 at 12:00 Oxycodone HCl (Roxicodone) 10 mg Q3H PRN PO PAIN LEVEL 4-7; Start 09/14/16 at 12 :00 Oxycodone HCl 5 mg 5 mg Q3H PRN PO PAIN LEVEL 1-3; Start 09/14/16 at 12:00 Acetaminophen (Ofirmev 1000mg/ 100ml Iv) 100 ml @ 400 mls/hr Q8H IVPB Last administered on 09/15/16 03:32; Admin Dose 400 MLS/HR; Start 09/14/16 at 12:00; Stop 09/16/16 at 04:14 Zolpidem Tartrate (Ambien) 5 mg HS PRN PO INSOMNIA Last administered on 03:32; Admin Dose 5 MG; Start 09/14/16 at 12:00 Aspirin (Ecotrin) 325 mg BID PO Last administered on 09/15/16 09:21; Admin Dose 325 MG; Start 09/15/16 at 09:00 Celecoxib (Celebrex) 200 mg BID PO Last administered on 09/15/16 09:21; Admin Dose 200 MG; Start 09/15/16 at 09:00 Dexamethasone (Decadron) 4 mg DAILY@07 IV Last administered on 09/15/16 05:54; Admin Dose 4 MG; Start 09/15/16 at 07:00; Stop 09/18/16 at 06:59 Pantoprazole (Protonix Tab) 40 mg DAILY@06 PO Last administered on 09/15/16 05: 46; Admin Dose 40 MG; Start 09/15/16 at 06:00 Docusate Sodium/ Ferrous Fumarate (Inga-Sequels) 1 tab BID PO Last administered on 09/15/16 09:21; Admin Dose 1 TAB; Start 09/15/16 at 09:00 Docusate Sodium (Colace) 200 mg BID PO Last administered on 09/15/16 09:21; Admin Dose 200 MG; Start 09/15/16 at 09:00; Stop 09/17/16 at 21:01 Simethicone (Mylicon) 80 mg TID PRN PO DISTENSION/GAS/BLOATING; Start 09/14/16 at 12:00 Senna/Docusate Sodium (Senokot-S) 2 tab BID PRN PO CONSTIPATION; Start 09/14/16 at 12:00 Magnesium Hydroxide (Milk Of Mag) 30 ml HS PRN PO CONSTIPATION; Start 09/14/16 at 12:00 Bisacodyl (Dulcolax Supp) 10 mg DAILY PRN MA CONSTIPATION; Start 09/14/16 at 12: 00 Sodium Biphosphate/ Sodium Phosphate (Fleet Enema) 133 ml DAILY PRN MA CONSTIPATION; Start 09/14/16 at 12:00 Diphenhydramine HCl (Benadryl) 25 mg Q4H PRN IM ITCHING OR RASH; Start 09/14/16 at 12:00 Ketorolac Tromethamine (Toradol) 15 mg DAILY@06 PRN INJ ADMINSTER BY SURGEON ONLY; Start 09/15/16 at 06:00; Stop 09/19/16 at 05:59 Bupivacaine HCl/ Epinephrine Bitart (Marcaine 0.25%/ Epi (Sdv) 30 ml) 20 ml DAILY@06 PRN INJ ADMINSTER BY SURGEON ONLY; Start 09/15/16 at 06:00; Stop at 05:59 Naloxone HCl (Narcan) 0.2 mg Q2M PRN IV DECREASED REPIRATORY RATE; Start at 12:00 Ondansetron HCl (Zofran Inj) 4 mg Q6H PRN IV NAUSEA AND/OR VOMITING; Start 09/14 at 17:00 Acetaminophen (Tylenol Tab) 650 mg Q6H PRN PO PAIN LEVEL 1-3 OR FEVER; Start at 17:00 Acetaminophen (Tylenol Supp) 650 mg Q6H PRN MA PAIN LEVEL 1-3 OR FEVER; Start 09/14/16 at 17:00 Acetaminophen/ Hydrocodone Bitart ([place] (5/325)) 1 tab Q6H PRN PO MODERATE PAIN LEVEL 4-6; Start 09/14/16 at 17:00 Acetaminophen/ Hydrocodone Bitart ([place] (5/325)) 2 tab Q6H PRN PO SEVERE PAIN LEVEL 7-10; Start 09/14/16 at 17:00 Morphine Sulfate (morphine) 2 mg Q4H PRN IV SEVERE PAIN LEVEL 7-10 Last administered on 09/14/16t 22:34; Admin Dose 2 MG; Start 09/14/16 at 17:00 Docusate Sodium (Colace) 100 mg Q12H PRN PO CONSTIPATION; Start 09/14/16 at 17: 00 Magnesium Hydroxide (Milk Of Mag) 30 ml DAILY PRN PO CONSTIPATION; Start at 17:00 Bisacodyl (Dulcolax Supp) 10 mg DAILY PRN MA CONSTIPATION; Start 09/14/16 at 17: 00 Diagnostic Test (Pha) (Accu-Chek) 1 ea 02 XX ; Start 09/15/16 at 02:00 Insulin Glargine (Lantus) 15 unit DAILY@08 SC Last administered on 09/15/16 09: 21; Admin Dose 15 UNIT; Start 09/15/16 at 08:00 Diagnostic Test (Pha) (Accu-Chek) 1 ea 02 XX ; Start 09/15/16 at 02:00 Atorvastatin Calcium (Lipitor) 20 mg QHS PO ; Start 09/15/16 at 21:00 Amlodipine Besylate (Norvasc) 10 mg DAILY PO ; Start 09/16/16 at 09:00 Duloxetine HCl (Cymbalta) 60 mg DAILY PO ; Start 09/16/16 at 09:00 Gabapentin (Neurontin) 800 mg TID PO Last administered on 09/15/16 13:18; Admin Dose 800 MG; Start 09/15/16 at 13:00 Losartan Potassium (Cozaar) 100 mg DAILY PO ; Start 09/16/16 at 09:00 SHIRIN CANDELARIA Sep 15, 2016 16:15
[2016-09-15 20:21] VITALS: BP 127/73; RESP 20
[2016-09-15] MEDS ORDERED: ATORVASTATIN 20 MG TAB PO SCH (21:00)
[2016-09-16] MEDS: DEXTROSE 5%-LR 1,000 ML IV SCH (01:14)
[2016-09-16] MEDS: ACCU-CHEK XX SCH ×2 (02:00)
[2016-09-16 03:28] VITALS: BP 134/65; RESP 20
[2016-09-16] MEDS: ACETAMINOPHEN 1000MG/100ML IV 100 ML IVPB SCH (04:14)
[2016-09-16 05:11] LABS: BASOPHILS % 0.2 % (0.0-2.0); EOSINOPHILS % 0.2 % (0.0-7.0); HEMATOCRIT 33.9 % (42.0-52.0); HEMOGLOBIN 11.5 g/dl (14.0-18.0); LYMPHOCYTES # 1.6 10^3/ul (0.8-2.9); LYMPHOCYTES % 12.8 % (15.0-51.0); MEAN CORPUSCULAR HEMOGLOBIN 29.3 pg (29.0-33.0); MEAN CORPUSCULAR HGB CONC 33.9 g/dl (32.0-37.0); MEAN CORPUSCULAR VOLUME 86.5 fl (82.0-101.0); MEAN PLATELET VOLUME 10.3 fl (7.4-10.4); NEUTROPHIL # 9.9 10^3/ul (1.6-7.5); NEUTROPHILS % 77.9 % (39.0-77.0); PLATELET COUNT 151 10^3/UL (140-415); RED BLOOD COUNT 3.92 10^6/ul (4.70-6.10); RED CELL DISTRIBUTION WIDTH 13.2 % (11.5-14.5); WHITE BLOOD COUNT 12.8 10^3/ul (4.8-10.8)
[2016-09-16] MEDS: DEXAMETHASONE 4 MG/ML 1 ML INJ IV SCH (06:37)
[2016-09-16] MEDS: PANTOPRAZOLE (EC) 40 MG TAB PO SCH (06:37)
[2016-09-16 07:00] VITALS: BP 140/82; RESP 20
--- NOTE | 2016-09-16 07:40 | PN ---
Date/Time of Note Date/Time of Note DATE: 09/16/16 TIME: 07:39 Assessment/Plan VTE Prophylaxis VTE Prophylaxis Intervention: ambulation, SCD's, other (Aspirin 325 mg twice daily) Lines/Catheters IV Catheter Type (from Nrsg): Peripheral IV Assessment/Plan Assessment/Plan -Pain Cocktail Given -Pain Meds as needed -Dress change performed today -ASA for DVT Prophylaxis x 6 weeks outpatient discussed. -Continue monitoring as outpatient on discharge -Follow-up at scheduled postop outpatient appointment or sooner if there is any issue. -Tegaderm dressings given with specific instructions to use as outpatient to keep wound dry until ck are moved around 10 days. -Hip precautions discussed -Patient Stable -Discharge to Home with home health Subjective 24 Hr Interval Summary 61-year-old male postop day 2 status post right total hip arthroplasty via anterior route. Denies any pain complaints. Patient is up and walking throughout the hallways with physical therapy. Uses front wheeled walker for assisted ambulation. Patient states that he feels great. Would like to go home. Denies any calf pain, chest pain or tightness. Constitutional: no complaints Pain Control: well controlled Exam/Review of Systems Vital Signs Vitals Vital Signs Date Time Temp Pulse Resp B/P Pulse Ox O2 Delivery O2 Flow Rate FiO2 09/16/16 05:00 18 09/16/16 03:28 97.8 71 134/65 96 09/14/16 16:30 Room Air Intake and Output 09/15/16 09/15/16 09/16/16 15:00 23:00 07:00 Intake Total 1500 ml 900 ml Output Total 1550 ml Balance 1500 ml -650 ml Exam Free Text/Dictation -Pain Cocktail Drains: Intact -Incision: Clean, Dry and Intact without any redness or drainage -Thigh soft -5/5 Quadriceps, Tibialis Anterior, EHL Gastrocnemius/Soleus and Peroneals -Normal Sensation -Palpable DP/PT, Capillary Refill <2 secs -No Distal Edema -Negative Jeremy Sign/No calf pain -Toes Freely Movable Constitutional: alert, oriented, well developed Results Result Diagram: 09/16/16 0421 09/15/16 0432 ROSALIND SKINNER PA-C Sep 16, 2016 07:40
--- NOTE | 2016-09-16 07:44 | DS ---
Date/Time of Note Date/Time of Note DATE: 09/16/16 TIME: 07:43 Discharge Summary Admission/Discharge Info Admit Date/Time Sep 14, 2016 at 05:21 Discharge Date/Time 09/16/16 Discharge Diagnosis Status post right total hip arthroplasty via anterior route Patient Condition: Stable Hospital Course On the day of admission, the patient underwent right total hip arthroplasty via anterior route Intraoperative complications: None Postoperative complications: None The patient was given prophylactic antibiotics and anticoagulants. On the day of surgery and first postoperative day patient was started on gait training and was taught usual restrictions following anterior hip replacement Suction drain removed on the first postoperative day and the dressings were changed. The wound was found to be clean and healing well. There was no sign of infection. Pain cocktail given. On the second postoperative day, patient continued with inpatient PT. Dressings were changed. Wound was found to be clean and healing well. No signs of infection. Pain cocktail given. On the day of discharge, the wound was clean and healing well; there was no sign of infection. The dressings were changed. Discharge Temperature: 98.6 degrees Discharge White Blood Cell Count: 12.8 Discharge Hemoglobin: 11.5 The patient was discharged home with home health. Arrangements were made for visiting nurses and home health/physical therapy. Tegaderm with pad also provided for patient. Instructions given on how to use to keep wound dry while showering. Patient may discontinue use of Tegaderm with pad after ck have been removed around 10 days postoperatively. The patient will be seen in office at scheduled postoperative evaluation date given on their preoperative exam. Should patient complain of any problems prior to scheduled postoperative evaluation date, they may call into outpatient clinic to determine if they need to be scheduled at sooner appointment to be seen immediately if needed. Discharge medications: As per medication reconciliation form Diet: Same as preadmission diet. This is Rosalind Spicer PA-C dictating discharge summary for Dr. Abhijit Navarro. Home Meds Reported Medications Insulin Human Isophan/Regular (HUMULIN (70/30)) 100 Unit/Ml Susp, 10 UNIT SC BID 09/14/16 Atorvastatin Calcium (Atorvastatin Calcium) 20 Mg Tablet, 20 MG PO QHS, #30 TAB 09/14/16 Duloxetine Hcl* (Duloxetine Hcl*) 60 Mg Capsule.dr, 60 MG PO DAILY, #30 CAP 8/2/17 Amlodipine Besylate* (Norvasc*) 10 Mg Tablet, 10 MG PO DAILY, TAB 09/14/16 Losartan Potassium* (Losartan Potassium*) 100 Mg Tablet, 100 MG PO DAILY, TAB 09/14/16 Temazepam (Restoril) 15 Mg Cap, 30 MG PO QHS, CAP 09/14/16 Hydrocodone/Acetaminophen ([place] 10-325 Tablet) 1 Each Tablet, 1 EACH PO Y for PAIN, TAB 09/14/16 Gabapentin* (Neurontin*) 800 Mg Tablet, 800 MG PO TID, #90 TAB 09/14/16 Follow-up Plan 10/05/2016 at 2:15 PM Primary Care Provider Not On Staff Doctor Pending Labs Laboratory Tests Test 09/15/16 08:43 09/15/16 12:42 09/15/16 17:42 09/15/16 20:11 Bedside Glucose 150mg/dL (70-220) 206mg/dL (70-220) 137mg/dL (70-220) 197mg/dL (70-220) Test 09/16/16 01:45 09/16/16 04:21 Bedside Glucose 155mg/dL (70-220) White Blood Count 12.810^3/ul (4.8-10.8) Red Blood Count 3.9210^6/ul (4.70-6.10) Hemoglobin 11.5g/dl (14.0-18.0) Hematocrit 33.9% (42.0-52.0) Mean Corpuscular Volume 86.5fl (82.0-101.0) Mean Corpuscular Hemoglobin 29.3pg (29.0-33.0) Mean Corpuscular Hemoglobin Concent 33.9g/dl (32.0-37.0) Red Cell Distribution Width 13.2% (11.5-14.5) Platelet Count 54295^3/UL (140-415) Mean Platelet Volume 10.3fl (7.4-10.4) Neutrophils % 77.9% (39.0-77.0) Lymphocytes % 12.8% (15.0-51.0) Monocytes % 8.0% (0.0-11.0) Eosinophils % 0.2% (0.0-7.0) Basophils % 0.2% (0.0-2.0) Nucleated Red Blood Cells % 0.0/100WBC (0.0-0.0) Neutrophils # 9.910^3/ul (1.6-7.5) Lymphocytes # 1.610^3/ul (0.8-2.9) Monocytes # 1.010^3/ul (0.3-0.9) Eosinophils # 0.010^3/ul (0.0-0.5) Basophils # 0.010^3/ul (0.0-0.1) Nucleated Red Blood Cells # 0.010^3/ul (0.0-0.0) ROSALIND SKINNER PA-C Sep 16, 2016 07:44
[2016-09-16] MEDS: INSULIN ASPART [NOVOLOG] 3 ML PEN SC SCH ×4 (08:34→11:55)
[2016-09-16] MEDS: INSULIN GLARGINE [LANtus] 3 ML PEN SC SCH (08:35)
[2016-09-16] MEDS: FERROUS FUMARATE (SR) TAB PO SCH (08:39)
[2016-09-16] MEDS: ASPIRIN (EC) 325 MG TAB PO SCH (08:39)
[2016-09-16] MEDS: CELECOXIB 200 MG CAP PO SCH (08:39)
[2016-09-16] MEDS: GABAPENTIN 400 MG CAP PO SCH ×2 (08:39→12:43)
[2016-09-16] MEDS: DOCUSATE SODIUM 100 MG CAP PO SCH (08:39)
[2016-09-16] MEDS ORDERED: AMLODIPINE 10 MG TAB PO SCH (09:00)
[2016-09-16] MEDS ORDERED: DULOXETINE 30 MG CAP DR PO SCH (09:00)
[2016-09-16] MEDS ORDERED: LOSARTAN 50 MG TAB PO SCH (09:00)
--- NOTE | 2016-09-16 11:42 | OPR ---
Date/Time of Note Date/Time of Note DATE: 09/16/16 TIME: 11:23 Operative Report Free Text/Dictation Preoperative Diagnosis: Severe degenerative osteoarthritis of the [right] hip. 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 Left Total hip replacement by the anterior route. Computer-assisted surgery using the [employer] digital imaging computer. Findings at Surgery: The patient was found to have exceedingly severe degenerative osteoarthritis of the [] hip. The femoral head had no normal-appearing articular cartilage. The patient's bone quality was satisfactory for a female her age. Justification for Surgery: Patient has end-stage osteoarthritis and avascular necrosis of the left hip hip. There can be no scientific expectation that any further conservative measures would give this patient any relief from her incapacitating pain. Description of Procedure: The patient was given intravenous antibiotics approximately 1 hour prior to surgery. An epidural anesthetic was initiated in the pre-anesthesia area. The patient was then moved to the operating room and transferred to a [place] table. General anesthesia was induced with intubation and full muscle paralysis. Plain and digital x-rays were obtained of the pelvis and the operative hip and stored in the computer. Measurements were made on the operative hip to determine the degree of length and offset. The intent was to use operative hip as a basic template for restoring the geometry of the operative hip (i.e. the opposite hip was not used as a template). On the pelvic x-ray, the correct orientation of the pelvis for surgery was determined. Note that the [employer] computer was used throughout for making all leg length,offst and angular measurements. The operative thigh, leg and lower abdomen were prepared and draped in the usual sterile fashion. An oblique incision was made over the lateral aspect of the [left] thigh. The incision commenced 3 cm distal and 3 cm posterior to the anterior superior iliac spine. The total length of the incision was approximately 120 mm. The incision was deepened through the subcutaneous fat to expose the fascia over the tensor muscle. The fascia was opened to expose the muscle. Bleeding points were cauterized throughout by diathermic coagulation. The fascia over the tensor was incised by blunt digital resection. The interval was found between the tensor muscle and the anterior capsule as well as the rectus muscle. Superior and inferior Cobra retractors were now placed inside the capsule to expose the anterior surface of the capsule. A third Cobra retractor was placed over the brim of the pelvis. The reflected head of the rectus was first elevated with a Goldman elevator. The anterior capsule was incised along the length of the intratrochhanteric line with the hip externally rotated. The incision extended around the proximal femur to the lesser trochanter. The incision was extended vertically to the edge of the acetabulum. The capsular incision was extended along the anteromedial extent of the anterior rim of the acetabulum. A Cobra retractor was placed inside the capsule medially. The lateral aspect of the anterior capsule was incised and a second cobra retractor was placed inside the capsule around the superior femoral neck. Three turns of traction were placed on the operative leg. The femoral head was now freed from the acetabulum using a skid. The remaining superior and anterior capsule was incised and the femoral neck was then incised. A corkscrew was inserted into the femoral head from the anterior aspect of the femoral head. Using a corkscrew as a handle and using a skid, the hip was not completely dislocated. The hip was reduced. An osteotomy of the femoral neck was made at the location determined by the preoperative templating. The femoral head was now removed. By suitable retraction, the acetabulum was exposed. Soft tissues around the folia removed. The acetabulum was enlarged and deepened 53 mm. The last acetabular reamings were inserted under fluoroscopic control and the correct orientation of the socket and if the reaming were determined by the [employer] computer and direct x-ray if x-ray visualization. The acetabular component was now installed with an orientation of 41 degrees of abduction and 20 degrees of anteversion. The [employer] computer was used for making these measurements. The proximal femur was now exposed by hyperextending and adducting the hip joint. A retractor was placed posterior to the femoral neck so as to retract proximal femur laterally. A hook was then placed around the proximal femur deep to the tensor muscle and as proximal as possible. The hook was attached to the table romy and the femur was elevated as high as we can go without force being applied to the femur. The superior and proximal femoral capsules were now incised. The cobra retractor was placed behind the posterior rim of the acetabulum. A Steinmann pin was driven into the pelvis superior to the acetabulum to retract the soft tissues. A third cobra was placed over the rim of the acetabulum and the fourth cobra was placed along the medial aspect of the acetabulum. This allowed further mobilization of the proximal femur. A canal finder was used to find the canal. The proximal femur is now broached starting with the smallest broach and progressively increasing until we felt we could go no further. At this point, the size [] broach was left in place and the hip was reduced. X-rays were taken and these x-rays showed that we could broach up 1 more size. The hip was reduced with the shortest femoral head and neck assembly and measurements were made to determine what neck lengths and offset changes were still needed. The hip was dislocated. The next size broach [] was now installed. This broach was found to be completely stable. The hip was reduced using the +5 mm femoral head and neck assembly and the 12 broach. Measurements indicated that the leg lengths had been increased by [] mm. The offset was []. This was felt to be an appropriate combination. The trial components were placed and the retractor was placed anterior to the acetabulum and the hip was hyperextended using the [place] table until the spar touched the floor. This showed that the hip was totally stable in the anterior aspect of the socket. As trial components were removed, the permanent plastic acetabular component was installed. This was followed by installing the permanent femoral component. X-rays of the pelvis showed that the [] was excellent inside and that the orientation was perfect. The wound was frequently irrigated throughout the procedure with normal saline containing antibiotics using pulsatile lavage. The permanent femoral component was installed, it fit perfectly and appeared to be completely stable. The permanent femoral head was installed and the hip was reduced. Superficial and deep Hemovac drains were placed. Soft tissues around the hip were injected with a mixture of Naropin, Toradol, morphine, and elonidine for pain management. The deep tissues were now closed using interrupted Vicryl. The subcutaneous tissues were closed using a Quill type stitch. The skin was closed using ck. The usual sterile dressings were applied and an abduction pillow was placed between the patients legs before transferring her to a gurney. The patient returned to the recovery room in stable condition. There were no problems or complications throughout this operation as far as is known. Although multiple x- rays were taken in the operating room and saved, the permanent x-ray record was obtained in the recovery room to be sure that the hip did not dislocate in transfer. 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 Leg length: [] Offset: [] Reinfusion was used. The total blood loss was approximately [] mL and [] were recovered and reinfused as packed cells. Surgeon: MICHAEL RAE MD chemist assistant: ROSALIND SKINNER PA-C Anesthesia: general, epidural Estimated Blood Loss: other (500ml) Transfusion Required: yes Complications: None MICHAEL RAE MD Sep 16, 2016 11:42
--- NOTE | 2016-09-16 11:45 | PN ---
Date/Time of Note Date/Time of Note DATE: 09/16/16 TIME: 11:44 Assessment/Plan VTE Prophylaxis VTE Prophylaxis Intervention: other (per orthopedic surgoen recs) Lines/Catheters IV [facility]from [facility]): [place] Assessment/Plan Chief Complaint/Hosp Course Impression and plan 1. Severe degenerative right hip osteoarthritis status post right total hip arthroplasty. Continue with wound care physical therapy and analgesics. Appears stable at present. 2. History of diabetes. continue insulin regimen. 3. History of hypertension. Blood pressure remained stable at present. Will hold off antihypertensives for now. Will provide as needed 4. History of dyslipidemia. Patient resumed on statin medication 5. History of back pain. Continue physical therapy and analgesics. 6. Hypomagnesemia. stable improved Disposition plan: medically stable. plan for discharge today Discussed plan of care with Dr. Todd Problems: Subjective 24 Hr Interval Summary Free Text/Dictation walking with walker. no s/s of distress Exam/Review of Systems Vital Signs Vitals Vital Signs Date Time Temp Pulse Resp B/P Pulse Ox O2 Delivery O2 Flow Rate FiO2 09/16/16 07:00 98.6 91 20 140/82 95 09/14/16 16:30 Room Air Intake and Output 09/15/16 09/15/16 09/16/16 15:00 23:00 07:00 Intake Total 1500 ml 900 ml Output Total 1550 ml Balance 1500 ml -650 ml Exam Constitutional: alert, obese, oriented Head: normocephalic Neck: supple, No jvd Respiratory: normal air movement Cardiovascular: regular rate and rhythm Gastrointestinal: non-tender, soft Musculoskeletal: swelling. Status post right hip surgery with drain removed. 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2 Nucleated Red Blood Cells % 0.0 Neutrophils # 9.9 H Lymphocytes # 1.6 Monocytes # 1.0 H Eosinophils # 0.0 Basophils # 0.0 Nucleated Red Blood Cells # 0.0 Bedside Glucose 141 Medications Medications Current Medications Ropivacaine 60 ml/ Morphine Sulfate 4 mg/Clonidine 100 mcg/ Epinephrine 0.3 mg/ Ketorolac Tromethamine 30 mg/Vancomycin HCl 500 mg/Sodium Chloride 50 ml INTRA- OP INJ ; Start 09/14/16 at 15:30 Dextrose/Lactated Ringer's (D5-Lr) 1,000 ml @ 80 mls/hr [id number] IV Last administered on 09/14/16 21:16; Admin Dose 80 MLS/HR; Start 09/14/16 at 11:44 Oxycodone HCl (Roxicodone) 20 mg Q3H PRN PO PAIN LEVEL 8-10; Start 09/14/16 at 12:00 Oxycodone HCl (Roxicodone) 10 mg Q3H PRN PO PAIN LEVEL 4-7; Start 09/14/16 at 12 :00 Oxycodone HCl (Roxicodone) 5 mg Q3H PRN PO PAIN LEVEL 1-3; Start 09/14/16 at 12: 00 Zolpidem Tartrate (Ambien) 5 mg HS PRN PO INSOMNIA Last administered on 03:32; Admin Dose 5 MG; Start 09/14/16 at 12:00 Aspirin (Ecotrin) 325 mg BID PO Last administered on 09/16/16 08:39; Admin Dose 325 MG; Start 09/15/16 at 09:00 Celecoxib (Celebrex) 200 mg BID PO Last administered on 09/16/16 08:39; Admin Dose 200 MG; Start 09/15/16 at 09:00 Dexamethasone (Decadron) 4 mg DAILY@07 IV Last administered on 09/16/16 06:37; Admin Dose 4 MG; Start 09/15/16 at 07:00; Stop 09/18/16 at 06:59 Pantoprazole (Protonix Tab) 40 mg DAILY@06 PO Last administered on 09/16/16 06: 37; Admin Dose 40 MG; Start 09/15/16 at 06:00 Docusate Sodium/ Ferrous Fumarate (Inga-Sequels) 1 tab BID PO Last administered on 09/16/16 08:39; Admin Dose 1 TAB; Start 09/15/16 at 09:00 Docusate Sodium (Colace) 200 mg BID PO Last administered on 09/16/16 08:39; Admin Dose 200 MG; Start 09/15/16 at 09:00; Stop 09/17/16 at 21:01 Simethicone (Mylicon) 80 mg TID PRN PO DISTENSION/GAS/BLOATING; Start 09/14/16 at 12:00 Senna/Docusate Sodium (Senokot-S) 2 tab BID PRN PO CONSTIPATION; Start 09/14/16 at 12:00 Magnesium Hydroxide (Milk Of Mag) 30 ml HS PRN PO CONSTIPATION; Start 09/14/16 at 12:00 Bisacodyl (Dulcolax Supp) 10 mg DAILY PRN [place] CONSTIPATION; Start 09/14/16 at 12: 00 Sodium Biphosphate/ Sodium Phosphate (Fleet Enema) 133 ml DAILY PRN [place] CONSTIPATION; Start 09/14/16 at 12:00 Diphenhydramine HCl (Benadryl) 25 mg Q4H PRN IM ITCHING OR RASH; Start 09/14/16 at 12:00 Ketorolac Tromethamine (Toradol) 15 mg DAILY@06 PRN INJ ADMINSTER BY SURGEON ONLY; Start 09/15/16 at 06:00; Stop 09/19/16 at 05:59 Bupivacaine HCl/ Epinephrine Bitart (Marcaine 0.25%/ Epi (Sdv) 30 ml) 20 ml DAILY@06 PRN INJ ADMINSTER BY SURGEON ONLY; Start 09/15/16 at 06:00; Stop at 05:59 Naloxone HCl (Narcan) 0.2 mg Q2M PRN IV DECREASED REPIRATORY RATE; Start at 12:00 Ondansetron HCl (Zofran Inj) 4 mg Q6H PRN IV NAUSEA AND/OR VOMITING; Start 09/14 at 17:00 Acetaminophen (Tylenol Tab) 650 mg Q6H PRN PO PAIN LEVEL 1-3 OR FEVER; Start at 17:00 Acetaminophen (Tylenol Supp) 650 mg Q6H PRN [place] PAIN LEVEL 1-3 OR FEVER; Start 09/14/16 at 17:00 Acetaminophen/ Hydrocodone Bitart (May (5/325)) 1 tab Q6H PRN PO MODERATE PAIN LEVEL 4-6; Start 09/14/16 at 17:00 Acetaminophen/ Hydrocodone Bitart (May (5/325)) 2 tab Q6H PRN PO SEVERE PAIN LEVEL 7-10; Start 09/14/16 at 17:00 Morphine Sulfate (morphine) 2 mg Q4H PRN IV SEVERE PAIN LEVEL 7-10 Last administered on 09/14/16 22:34; Admin Dose 2 MG; Start 09/14/16 at 17:00 Docusate Sodium (Colace) 100 mg Q12H PRN PO CONSTIPATION; Start 09/14/16 at 17: 00 Magnesium Hydroxide (Milk Of Mag) 30 ml DAILY PRN PO CONSTIPATION; Start at 17:00 Bisacodyl (Dulcolax Supp) 10 mg DAILY PRN [place] CONSTIPATION; Start 09/14/16 at 17: 00 Diagnostic Test (Pha) (Accu-Chek) 1 ea 02 XX ; Start 09/15/16 at 02:00 Insulin Glargine (Lantus) 15 unit DAILY@08 SC Last administered on 09/16/16 08: 35; Admin Dose 15 UNIT; Start 09/15/16 at 08:00 Diagnostic Test (Pha) (Accu-Chek) 1 ea 02 XX ; Start 09/15/16 at 02:00 Atorvastatin Calcium (Lipitor) 20 mg QHS PO Last administered on 09/15/16 20:27 ; Admin Dose 20 MG; Start 09/15/16 at 21:00 Amlodipine Besylate (Norvasc) 10 mg DAILY PO Last administered on 09/16/16 08: 40; Admin Dose 10 MG; Start 09/16/16 at 09:00 Duloxetine HCl (Cymbalta) 60 mg DAILY PO Last administered on 09/16/16 08:39; Admin Dose 60 MG; Start 09/16/16 at 09:00 Gabapentin (Neurontin) 800 mg TID PO Last administered on 09/16/16 08:39; Admin Dose 800 MG; Start 09/15/16 at 13:00 Losartan Potassium (Cozaar) 100 mg DAILY PO Last administered on 09/16/16t 08:40 ; Admin Dose 100 MG; Start 09/16/16 at 09:00 SHIRIN CANDELARIA Sep 16, 2016 11:45
[2016-09-16 14:00] VITALS: BP 145/86; RESP 20
== END 2016-09-16 16:00 | disposition home health service (06) | DRG 470 ==
LOC: REC 05:21 → MS1 13:01
PROC: 0SR902A Replacement of Right Hip Joint with Metal on Polyethylene Synthetic Substitute, Uncemented, Open Approach (ICD-10-PCS; principal; 2016-09-14 07:30)
DX: M16.11 Unilateral primary osteoarthritis, right hip (principal); E83.42 Hypomagnesemia; I10 Essential (primary) hypertension; E66.01 Morbid (severe) obesity due to excess calories; Z68.36 Body mass index [BMI] 36.0-36.9, adult; E78.5 Hyperlipidemia, unspecified; E11.9 Type 2 diabetes mellitus without complications
CPT/HCPCS: 73500; 73530; 80053; 80061; 82962; 83036; 83735; 84100; 84436; 84443; 84479; 85025; 86850; 86900; 86901; 86920; 88304; 88311; 97116; 97162; 97166; 97530; 97535; C1776; J0131; J0171; J0360; J0690; J0735; J1100; J1170; J1644; J1815; J1885; J2250; J2270; J2274; J2405; J2710; J2795; J3010; J3370; J3475; J7120; J7121

== ENCOUNTER → 2016-10-05 | Outpatient (CLI) | payer MEDICARE, OTHER ==
--- NOTE | 2016-10-05 14:09 | PN ---
Date/Time of Note Date/Time of Note DATE: 10/05/16 TIME: 14:05 Outpatient Progress Note Chief Complaint 3 week follow-up status post right total hip arthroplasty via anterior route HPI 61-year-old male presents today for three-week postoperative appointment status post right total hip arthroplasty via anterior route performed on 09/16/2016. Patient states that he "feels great" with pain only at night. Patient states that he is returned to normal functionality as he is able to walk a couple of miles without any discomfort. His range of motion continues to improve and he is progressing well. Patient states that he has not been using assisted ambulatory device in regards to front wheeled walker since the weekend of discharge from the hospital. Denies any calf pain. Denies any chest pain/ tightness or shortness of breath. Patient states that he does experience moderate and at times severe pain at night at rest after a full day of activity. [place] does help with pain complaints. He also notices at times swelling to the distal surgical wound. Denies any redness, discharge, fever or any pain to the hip or surgical wound. Review of Systems Const: No Fever, no chills, no Fatigue, normal appetite, no diaphoresis. Resp: No SOB, no wheezing, no chest pain. CV: No chest pain, no palpitaions, no YU. Physical Exam Blood pressure is 150/84, temperature is 98.5, pulse is 94, respiratory rate is 12, height is 6 feet, weight is 272 pounds General Appearance: well-developed, well-nourished, in no acute distress. Right hip: Surgical wound is clean dry and intact. Mild swelling to the distal third of the surgical wound. No surrounding erythema. No tenderness to palpation. No discharge presentation or signs of infection. Patient is able to lie down supine and raise the leg up to 50-60. While in a seated position with the hips flexed at 90 he is able to raise an additional 15. No pain with range of motion. 5/5 strength on resistance. Full range of motion in regards to internal and external rotation as well as abduction not performed today as he is recent status post right total hip arthroplasty. Normal sensory examination to light touch throughout the right lower extremity. Negative Homans sign. Allergies Coded Allergies: No Known Allergies (Unverified Allergy, Unknown, 09/14/16) Assessment/Plan Problems: (1) Status post right hip replacement -Wound healing well after staple removal. No signs of infection. -Continue ASA 325 mg twice daily for DVT prophylaxis until 6 weeks status post surgery. -Continue hip precautions until 6 weeks status post surgery -No signs of DVT. -Patient progressing well. -Follow-up at 6 week postop appointment. X-rays will be performed at 6 weeks postoperative appointment. -Patient made aware that they may follow-up sooner, should they experience any issues or complications as we will be glad to see them. -Antibiotic card given today Antibiotic card provided for patient. Patient made aware that dental prophylaxis will be necessary prior to any dental procedure for the remainder of their lifetime. Patient is aware that they must contact their dentist prior to any procedure to inform them of previous joint replacement with prosthesis implant so appropriate antibiotic may be prescribed to lower risk of joint infection status post surgery. Card will also serve as confirmation should patient be traveling and have to go through security such as at an airport. Medications Home Meds Reported Medications Insulin Human Isophan/Regular (HUMULIN (70/30)) 100 Unit/Ml Susp, 10 UNIT SC BID 09/14/16 Atorvastatin Calcium (Atorvastatin Calcium) 20 Mg Tablet, 20 MG PO QHS, #30 TAB 09/14/16 Duloxetine Hcl* (Duloxetine Hcl*) 60 Mg Capsule.dr, 60 MG PO DAILY, #30 CAP 09/14/16 Amlodipine Besylate* (Norvasc*) 10 Mg Tablet, 10 MG PO DAILY, TAB 09/14/16 Losartan Potassium* (Losartan Potassium*) 100 Mg Tablet, 100 MG PO DAILY, TAB 09/14/16 Temazepam (Restoril) 15 Mg Cap, 30 MG PO QHS, CAP 09/14/16 Hydrocodone/Acetaminophen ([place] 10-325 Tablet) 1 Each Tablet, 1 EACH PO Y for PAIN, TAB 09/14/16 Gabapentin* (Neurontin*) 800 Mg Tablet, 800 MG PO TID, #90 TAB 09/14/16 ROSALIND SKINNER PA-C Oct 05, 2016 14:09
== END | disposition home or self-care (01) ==
LOC: HKI 13:31
DX: Z47.1 Aftercare following joint replacement surgery (principal); Z96.641 Presence of right artificial hip joint; M25.551 Pain in right hip; R22.41 Localized swelling, mass and lump, right lower limb

== ENCOUNTER → 2016-10-27 | Outpatient (CLI) | payer MEDICARE, OTHER ==
--- NOTE | 2016-10-27 14:26 | PN ---
Date/Time of Note Date/Time of Note DATE: 10/27/16 TIME: 14:23 Outpatient Progress Note Chief Complaint 6 weeks postop right total hip arthroplasty via anterior route HPI 7-year-old male presents today for 6 week postoperative appointment status post right total hip arthroplasty via anterior route on 09/16/2016. Patient is very pleased status post surgery. Denies any pain to the right hip. Patient has returned to normal activity in regards to functionality of the right hip. Patient has been having left hip pain as he also has severe osteoarthritis to the left hip. Patient has been taking DVT prophylaxis with aspirin 325 mg daily. Denies any chest pain/tightness, shortness of breath or calf pain. Review of Systems Const: No Fever, no chills, no Fatigue, normal appetite, no diaphoresis. Resp: No SOB, no wheezing, no chest pain. CV: No chest pain, no palpitaions, no YU. Physical Exam Blood pressure is 136/80, temperature is 98.2, pulse is 89, respiratory rate is 12, height is 6 feet, weight is 272 pounds General Appearance: well-developed, well-nourished, in no acute distress. Right hip: Surgical wound is clean dry and intact and healing well. Well- healed scarring. Normal sensory examination to light touch. While in the standing position patient is able to flex at the hip up to 45 and fully extend. 5/5 strength on resistance with flexion and extension while standing. While lying supine patient is able to perform straight leg raise up to 70 with 5/5 strength on resistance with flexion and extension at the hip. Full extension while lying down. No tenderness to palpation. Patient has 5 abduction and 20 adduction. Imaging X-ray of the Right hip performed on 10/27/2016 showing all components appearing well aligned, attached and integrated to the bone. No signs of any lucency between metal and bone. Allergies Coded Allergies: No Known Allergies (Unverified Allergy, Unknown, 09/14/16) Assessment/Plan Problems: (1) Status post right hip replacement -Patient progressing well -Surgical wound continues to heal well. -No signs of infection or DVT on exam. -X-rays showing no abnormalities in regards to prosthesis attachment to bone. -Antibiotic prophylaxis card provided today. -Patient may discontinue hip precautions at this time. -Follow-up 6 months status post surgery. If patient is doing well at that time , possible follow-up on as-needed basis from that point. Dental prophylaxis discussed in detail today. Patient given prophylaxis card with antibiotic options. Should patient have allergy to specific medication ( eg penicillin) alternative options are also provided on the card. Patient is aware that antibiotics should be taken prior to any procedures to prevent increased risk of infection to the joint. Patient is aware that this will be for the rest of their life. Patient states understanding and compliance. Medications Home Meds Reported Medications Insulin Human Isophan/Regular (HUMULIN (70/30)) 100 Unit/Ml Susp, 10 UNIT SC BID 09/14/16 Atorvastatin Calcium (Atorvastatin Calcium) 20 Mg Tablet, 20 MG PO QHS, #30 TAB 09/14/16 Duloxetine Hcl* (Duloxetine Hcl*) 60 Mg Capsule.dr, 60 MG PO DAILY, #30 CAP 09/14/16 Amlodipine Besylate* (Norvasc*) 10 Mg Tablet, 10 MG PO DAILY, TAB 09/14/16 Losartan Potassium* (Losartan Potassium*) 100 Mg Tablet, 100 MG PO DAILY, TAB 09/14/16 Temazepam (Restoril) 15 Mg Cap, 30 MG PO QHS, CAP 09/14/16 Hydrocodone/Acetaminophen ([place] 10-325 Tablet) 1 Each Tablet, 1 EACH PO Y for PAIN, TAB 09/14/16 Gabapentin* (Neurontin*) 800 Mg Tablet, 800 MG PO TID, #90 TAB 09/14/16 ROSALIND SKINNER PA-C Oct 27, 2016 14:26
--- NOTE | 2016-10-27 17:55 | RADRPT ---
PROCEDURE: XR Right hip and pelvis. CLINICAL INDICATION: Right hip pain. Pelvic pain. Postop. TECHNIQUE: Two views. Frontal pelvis and Lateralright hip. COMPARISON: 10/04/2016. FINDINGS: There is no fracture or dislocation. The soft tissues are normal. There is a right hip total arthroplasty which appears satisfactory. There are moderate degenerative changes of the left knee with joint space narrowing and osteophytes. There is no lytic or blastic lesion. Hardware is present in the lower lumbar spine. The upper pelvis is not completely included on the image. IMPRESSION: 1. Satisfactory postoperative appearance of the right hip. 2. Moderate degenerative changes of the left hip. 3. Prior lower lumbar spine surgery. RPTAT: QQ .Skip Sanchez MD, MD Date Time Electronically viewed and signed by .Skip Sanchez MD, on 10/27/2016 17:54 .R/
== END | disposition home or self-care (01) ==
LOC: HKI 13:31
DX: Z47.1 Aftercare following joint replacement surgery (principal); Z96.641 Presence of right artificial hip joint
CPT/HCPCS: 73502

== ENCOUNTER → 2017-01-17 | Outpatient (CLI) | END | disposition home or self-care (01) ==

== ENCOUNTER → 2017-01-27 | Outpatient (CLI) | END | disposition home or self-care (01) ==

== ENCOUNTER 2017-03-14 09:33 | Inpatient (IN) | END 2017-03-15 14:14 | disposition home health service (06) | DRG 470 ==

== ENCOUNTER → 2017-03-31 | Outpatient (CLI) | END | disposition home or self-care (01) ==

== ENCOUNTER → 2017-05-05 | Outpatient (CLI) | END | disposition home or self-care (01) ==

== ENCOUNTER → 2017-07-24 | Outpatient (CLI) | END | disposition home or self-care (01) ==